=== PATIENT | male | born 1970 | race Caucasian/White ===

== ENCOUNTER → 2018-08-07 | Outpatient (CLI) | payer BC | LOC: BMCIMAGING 14:16 | PROVIDERS: ATTEND Orthopaedic Surgery | DX: M25.532 Pain in left wrist (principal) ==

== ENCOUNTER → 2018-08-21 | Outpatient (CLI) | payer BC | LOC: BMCIMAGING 09:12 | PROVIDERS: ATTEND Orthopaedic Surgery Hand Surgery | DX: M25.532 Pain in left wrist (principal) ==

== ENCOUNTER → 2018-12-10 | Outpatient (CLI) | payer OTHER | LOC: BMCIMAGING 14:29 | PROVIDERS: ATTEND Internal Medicine | DX: N50.3 Cyst of epididymis (principal); N43.3 Hydrocele, unspecified; I86.1 Scrotal varices ==